=== PATIENT | male | born 1995 | race Caucasian/White ===

== ENCOUNTER 2019-03-26 13:04 | Emergency (ER) | payer OTHER ==
--- NOTE | 2019-03-26 14:12 | RAD ---
EXAM: Chest Two Views 03/26/2019 2:09 PM HISTORY: Sore throat and chest pain COMPARISON: January 09, 2016 FINDINGS: Heart: Normal in size and contour. Pulmonary vessels: Normal. Costophrenic angles: Clear. Lungs: No confluent pneumonia, overt edema, pleural effusion, or other acute process. Pneumothorax: None. Osseous structures:Intact. Additional findings: None. IMPRESSION: No significant acute intrathoracic disease.
== END 2019-03-26 14:32 | disposition home or self-care (01) ==
LOC: ERS 13:04
DX: R07.89 Other chest pain (principal)
CPT/HCPCS: 71046; 93005